=== PATIENT | male | born 1980 | race Caucasian/White ===

== ENCOUNTER 2022-12-06 08:48 | Emergency (ER) | payer OTHER, SELFPAY ==
--- NOTE | ~2022-12-06 | XR_ITS ---
Left ankle Technique: AP, oblique, and lateral views were obtained. Clinical History: Inversion injury Findings: There is a transverse, nondisplaced fracture of the lateral malleolus, just distal to the l evel of the ankle mortise. Ankle mortise and other visualized joint spaces are preserved. Soft tissu es are otherwise unremarkable. Impression: Transverse, nondisplaced fracture the lateral malleolus, as detailed above. Reviewed, dictated and finalized at location M. Impression: Transverse, nondisplaced fracture the lateral malleolus, as detailed above.
[2022-12-06 08:58] VITALS: BP 145/80; PULSE 72; RESP 16; TEMP 36.6; O2SAT 98
--- NOTE | 2022-12-06 09:14 | ED.LOWEXIN ---
HPI - Extremity Injury (Lower) General Chief Complaint: Extremity Injury, Lower Stated Complaint: Left Ankle Injury Source: patient, family and RN notes reviewed History of Present Illness HPI Narrative: 42-year-old male presents urgent care with at side. Patient states yesterday he was running to kick the soccer ball out of the way for his to mow, when he accidentally twisted his left ankle and fell to the ground. Pt presents with left lateral ankle pain and swelling. Denies any numbness, tingling, or other injury. Pt took an OTC analgesic last night. Related Data Home Medications Medication Instructions Recorded Confirmed No Home Medications 12/06/22 12/06/22 Allergies Allergy/AdvReac Type Severity Reaction Status Date / Time No Known Allergies Allergy Verified 12/06/22 09:23 Review of Systems Review of Systems: CONSTITUTIONAL: Denies fever, chills, or sweats. EYES: Denies visual changes, redness, or discharge. ENT: Denies otalgia and sore throat CARDIOVASCULAR: Denies chest pain, palpitations, or edema. RESPIRATORY: Denies cough or dyspnea. GASTROINTESTINAL: Denies abdominal pain, nausea, vomiting, or diarrhea. GENITOURINARY: Denies dysuria or hematuria. SKIN: Denies rash or itching. MUSCULOSKELETAL: Left ankle pain NEUROLOGIC: Denies headache, numbness, or weakness. Pertinent positives per HPI. PMFSH Comments At the time of my signature, I reviewed and agree with the nursing past medical, surgical, social, and family history. There is no relevant family history pertinent to the patient complaint. Exam Narrative: GENERAL: This is a well-nourished, well-developed patient, in no apparent distress. HEAD: normocephalic, atraumatic. EYES: Sclera clear/white. Vision is grossly intact. EARS: External ears normal NOSE: External nose normal with no obvious nasal discharge, nares without redness, no rhinorrhea. THROAT: Mucous membranes moist, posterior pharynx clear. NECK: Neck supple, non-tender without lymphadenopathy, masses or thyromegaly. CARDIOVASCULAR: Regular rate RESPIRATORY: No respiratory distress SKIN: warm, intact with no suspicious lesions or rash, good texture and turgor. NEURO: awake, alert, and oriented to person, place and time. There were no obvious focal neurologic abnormalities. EXTREMITIES: Left lateral ankle tenderness overlying the malleolus along with edema. Cap refill <3 seconds. BACK: Nontender without deformity or crepitus. No flank tenderness. Course Course Level of Care: Express Care Visit Vital Signs Vital signs: Vital Signs Temperature 97.8 F 12/06/22 08:58 Pulse Rate 72 12/06/22 08:58 Respiratory Rate 16 12/06/22 08:58 Blood Pressure 145/80 H 12/06/22 08:58 Pulse Oximetry 98 12/06/22 08:58 Oxygen Delivery Room Air 12/06/22 08:58 Temperature 97.8 F 12/06/22 08:58 Pulse Rate 72 12/06/22 08:58 Respiratory Rate 16 12/06/22 08:58 Blood Pressure 145/80 H 12/06/22 08:58 Pulse Oximetry 98 12/06/22 08:58 Oxygen Delivery Room Air 12/06/22 08:58 reviewed MDM - Extremity Injury (Lower) MDM Narrative Medical decision making narrative: Use the RICE method at home. May take ibuprofen and/or Tylenol if needed. Follow-up with specialist. Differential Diagnosis Differential diagnosis: Likely ankle sprain and strain, ankle fracture and other (ankle dislocation) Imaging Data Radiologist's impression: [facility] [address] [employer] [place] [id number] XRay Report Signed Patient: Francisco Mohamud : 1980 MR#: [id number] Age/Sex: 42 / M Acct:[id number] Loc: [facility]? ? ADM Date: 12/06/22Attending Dr: Ordering Physician: Magda Brody APRN Date of Service: 12/06/22 Procedure(s): XR ankle LT min 3V Accession Number(s): [id number] cc: Magda Brody APRN~ Left ankle Technique: AP, oblique, and lateral views were obtained. Clinical
== END 2022-12-06 09:51 | disposition home or self-care (01) ==
PROVIDERS: Emergency Provider Nurse Practitioner Family
DX: S82.65XA Nondisplaced fracture of lateral malleolus of left fibula, initial encounter for closed fracture (principal); W19.XXXA Unspecified fall, initial encounter
CPT/HCPCS: 29515; 73610; 99214; G0463